=== PATIENT | female | born 1990 | race Caucasian/White ===

== ENCOUNTER 2016-06-09 19:54 | Emergency (ER) | payer MEDICAID ==
[2016-06-09 19:54] VITALS: BMI 26.7
[2016-06-09 20:13] VITALS: BP 117/80; RESP 20; TEMP 97.9
[2016-06-09 21:20] LABS: BASO % 0.6 % (0.0-2.0); EOS # 0.1 K/uL (0.0-0.7); EOS % 0.8 % (0.0-4.0); HEMATOCRIT 37.5 % (34.0-47.0); LYMPH # 2.2 K/uL (1.0-4.3); LYMPH % 28.9 % (20.0-40.0); MEAN CELL VOLUME 81.7 fL (81.0-99.0); MEAN CORPUSCULAR HEMOGLOBIN 27.7 pg (27.0-31.0); MEAN CORPUSCULAR HGB CONC 33.9 g/dL (33.0-37.0); MONO # 0.5 K/uL (0.0-0.8); MONO % 6.5 % (0.0-10.0); RED CELL DISTRIBUTION WIDTH 13.4 % (11.5-14.5); WHITE BLOOD COUNT 7.6 K/uL (4.8-10.8)
[2016-06-09 21:26] LABS: RBC URINE < 1 /hpf (0-3); URINE BACTERIA RARE (<OCC); URINE BILIRUBIN NEGATIVE (NEGATIVE); URINE BLOOD NEGATIVE (NEGATIVE); URINE COLOR Yellow (YELLOW); URINE GLUCOSE (UA) 1+ mg/dL (Normal); URINE HYALINE CAST 0-2 /lpf (0-2); URINE KETONE 1+ mg/dL (NEGATIVE); URINE LEUKOCYTE ESTERASE NEG Leu/uL (Negative); URINE PROTEIN NEGATIVE (NEGATIVE); URINE UROBILINOGEN NORMAL mg/dL (0.2-1.0); WBC URINE 3 /hpf (0-5)
[2016-06-09 21:28] LABS: CHLORIDE 98 mmol/L (98-107)
[2016-06-09 21:29] LABS: POTASSIUM 3.8 mmol/L (3.6-5.2); SODIUM 136 mmol/L (132-148)
[2016-06-09 21:31] LABS: AST/SGOT 17 U/L (14-36); BILIRUBIN,TOTAL 0.5 mg/dL (0.2-1.3); CARBON DIOXIDE 25 mmol/L (22-30); GFR AFRICAN-AMERICAN > 60
[2016-06-09 21:32] LABS: ALB/GLOB RATIO 1.3 (1.0-2.1); ALKALINE PHOSPHATASE 54 U/L (38-126); ALT/SGPT 17 U/L (9-52); BLOOD UREA NITROGEN 11 mg/dL (7-17); CALCIUM 8.9 mg/dl (8.6-10.4); GLUCOSE,RANDOM 123 mg/dL (65-105); TOTAL PROTEIN 7.7 g/dL (6.3-8.3)
--- NOTE | 2016-06-09 21:57 | C.PDOC ---
History Of Present Illness Patient is a 25 year old female who presents to the ER with a complaint of vaginal spotting for the past 2 days. Patient reports being 8 weeks . Patient is P: 1. Patient denies dysuria, hematuria, or abdominal pain. Time Seen by Provider: 06/09/16 20:46 Chief Complaint (Nursing): Female Genitourinary History Per: Patient History/Exam Limitations: no limitations Onset/Duration Of Symptoms: Days (2) Current Symptoms Are (Timing): Still Present Associated Symptoms: denies: Urinary Symptoms (Dysuria, hematuria) Past Medical History Reviewed: Historical Data, Nursing Documentation, Vital Signs Vital Signs: Last Vital Signs Temp 97.9 F 06/09/16 20:10 Pulse 78 06/09/16 20:10 Resp 20 06/09/16 20:10 BP 117/80 06/09/16 20:10 Pulse Ox 99 06/09/16 23:10 - Medical History PMH: No Chronic Diseases - [facility] Procedures EPISIOTOMY (03/19/14) MONITORING NOS (03/19/14) MANUAL ASSIST DELIV NEC (03/19/14) Family History: States: Unknown Family Hx - Social History Hx Tobacco Use: No Hx Alcohol Use: No Hx Substance Use: No - Immunization History Hx Tetanus Toxoid Vaccination: No Hx Influenza Vaccination: No Hx Pneumococcal Vaccination: No Review Of Systems Gastrointestinal: Positive for: Abdominal Pain Genitourinary: Positive for: Other (Vaginal spotting). Negative for: Dysuria, Hematuria Physical Exam - Physical Exam Appears: Well, Non-toxic Skin: Normal Color, Warm, Dry Head: Atraumatic, Normacephalic Oral Mucosa: Moist Cardiovascular: Rhythm Regular Gastrointestinal/Abdominal: Soft, No Tenderness Pelvic: No Vaginal Bleeding, Vaginal Discharge (Minimal white ), No Cervix Open Neurological/Psych: Oriented x3 ED Course And Treatment - Laboratory Results Result Diagrams: 06/09/16 21:12 06/09/16 21:12 O2 Sat by Pulse Oximetry: 99 (Room air) Pulse Ox Interpretation: Normal Progress Note: Blood work and transvaginal US ordered. All labs and US reviewed with patients. Pt will follow up with Dr Crowley - private OB in 1-2 days Disposition Counseled Patient/Family Regarding: Diagnosis, Need For Followup - Disposition Referrals: Joel Crowley MD [Staff Provider] - Disposition: HOME/ ROUTINE Disposition Time: 23:09 Condition: IMPROVED Additional Instructions: Please follow up with OB/ [employer] - Dr Crowley in office as needed Return to ER if any concerns Instructions: Threatened Miscarriage (ED) - Clinical Impression Clinical Impression: Threatened - Scribe Statement The provider has reviewed the documentation as recorded by the Scribe Branden Mendiola All medical record entries made by the Junaidibe were at my direction and personally dictated by me. I have reviewed the chart and agree that the record accurately reflects my personal performance of the history, physical exam, medical decision making, and the department course for this patient. I have also personally directed, reviewed, and agree with the discharge instructions and disposition.
[2016-06-09 23:23] VITALS: PULSE 68; O2SAT 100
--- NOTE | 2016-06-10 09:22 | US ---
Indication: Vaginal bleeding Comparison: Ob transvaginal ultrasound performed 07/30/13 ; no recent study available for comparison. Technique: Real-time transabdominal pelvic ultrasound was performed. In addition a transvaginal pelvic ultrasound was necessary to better depict pelvic anatomy Findings: The uterus measures approximately 9.9 x 4.3 x 5.6 cm. Anteverted. Cervix length measures approximately 3.4 cm. There is a single intrauterine fetus present. The gestational sac measures 2.9 cm and is compatible with a gestational age of 7 weeks 5 days. The crown-rump length measures 1.8 cm and is compatible with a gestational age of 8 weeks 2 days. There is heart motion which measured 168.5 BPM. The right ovary measures 7.4 x 5.1 x 5.9 cm. 6.8 x 5.4 x 6.8 cm anechoic lesion, right ovary. The left ovary measures 3.1 x 1.9 x 3.0 cm. Blood flow was demonstrated to both ovaries. Impression: Live single intrauterine with estimated gestational age 7 weeks 5 days by gestational sac calculation and 8 weeks 2 days by crown-rump length calculation. heart rate 168.5 bpm. 6.8 cm probable right ovarian cyst. Advise an anomaly screen at 16-18 weeks gestational age Preliminary impression was provided by virtual radiologic.
== END 2016-06-09 23:22 | disposition home or self-care (01) ==
LOC: C.ER 19:54
DX: O20.0 Threatened abortion (principal); Z3A.08 8 weeks gestation of pregnancy

== ENCOUNTER 2016-12-27 11:19 | Emergency (ER) | payer MEDICAID ==
[2016-12-27 11:30] VITALS: BMI 25.9
--- NOTE | 2016-12-27 11:35 | OBHP ---
Datetime: 12/27/2016 11:31 IP Adm Impression: , intrauterine Admit Comment, IP Provider: at 36.4weeks here c/o pelvic pressure and pain, no vb, lof,+fm. obhx 1 x pmh den med pnv all nkda psh de soch de a/p at 36+weeks pelvic pain ua ob sono cont melvin and efm cont close observation Pelvic Type - PN: Adequate Extremities - PN: Normal Abdomen - PN: Normal Back - PN: Normal Breast - PN: Normal Lungs - PN: Normal Heart - PN: Normal Thyroid - PN: Normal Neurologic - PN: Normal HEENT - PN: Normal General - PN: Normal FHR - Baseline A Provider: 130 Contraction Comments Provider: occ EGA AdmitDate IP: 36.4 IP Chief Complaint: Maternal discomfort NICHD Variability Prov Fetus A: Moderate 6-25bpm NICHD Accel Fetus A IP Provider: [id number] FHR Category Provider Fetus A: Category I Genitourinary Exam: Normal DTRs - PN: Normal
[2016-12-27 11:56] LABS: RBC URINE 1 /hpf (0-3); URINE BACTERIA RARE (<OCC); URINE BILIRUBIN NEGATIVE (NEGATIVE); URINE BLOOD NEGATIVE (NEGATIVE); URINE COLOR Yellow (YELLOW); URINE GLUCOSE (UA) 1+ mg/dL (Normal); URINE KETONE NEGATIVE (NEGATIVE); URINE LEUKOCYTE ESTERASE 3+ Leu/uL (Negative); URINE PROTEIN NEGATIVE (NEGATIVE); URINE UROBILINOGEN NORMAL mg/dL (0.2-1.0); WBC URINE 20 /hpf (0-5)
--- NOTE | 2016-12-27 13:10 | US ---
OB limited/biophysical profile Indication: Pelvic pain Technique: Grayscale, color flow, and M-mode sonographic images of the single live intrauterine were obtained. Comparison: 1st trimester ultrasound performed 06/09/16 Findings: There is a single live intrauterine gestation. The fetus is in cephalic position. The placenta is posterior. There is no evidence of previa. There is a normal amount of amniotic fluid. The SANTA measures 11 cm. M-mode imaging demonstrates a heart rate to be 168.4 beats per min. Fetus has a composite sonographic age of 34 weeks 3 days. This calculation is based on the biparietal diameter, head circumference, abdominal circumference, and femur length. movements 2/2 breathing 2/2 tone 2/2 Amniotic fluid 2/2 Total score impression: 09/19 Impression: Biophysical profile of 8 out of 8. Single live intrauterine in cephalic position with a heart rate of 168.4 beats per min.
[2016-12-27 18:14] VITALS: BP 109/76; PULSE 127; TEMP 97.8; O2SAT 99
== END 2016-12-27 11:30 | disposition home or self-care (01) ==
LOC: C.EROB 11:19
DX: O26.893 Other specified pregnancy related conditions, third trimester (principal); R10.2 Pelvic and perineal pain; Z3A.36 36 weeks gestation of pregnancy